=== PATIENT | male | born 1955 | race African-American/Black ===

== ENCOUNTER 2020-08-15 13:51 | Emergency (ER) | payer OTHER, MEDICARE, SELFPAY ==
[~2020-08-15] VITALS: Ht 177.8 cm; Wt 89.4 kg
[2020-08-15 14:00] VITALS: Ht 177.8 cm; Wt 89.4 kg
[2020-08-15 15:00] LABS: BASOPHIL % 0.7 % (0.2-1.5); PLATELET COUNT 247 x10^3mcL (152-348)
[2020-08-15 15:01] LABS: RED CELL DISTRIBUTION WIDTH 14.7 % (12.1-16.2)
[2020-08-15 15:04] LABS: ALBUMIN 3.8 g/dL (3.4-5.0); BILIRUBIN TOTAL 0.5 mg/dL (0.20-1.00); CALCIUM 11.3 mg/dL (8.5-10.1); CARBON DIOXIDE 26.8 mmol/L (21-32); CREATININE SERUM 1.3 mg/dL (0.7-1.3); POTASSIUM SERUM 4.4 mmol/L (3.5-5.1)
[2020-08-15] MEDS ORDERED: ONDANSETRON4 M3 PO ×2 (17:50)
[2020-08-15] MEDS ORDERED: AMBIEN5 MG PO (17:50)
[2020-08-15 18:04] VITALS: BP 187/97
== END 2020-08-15 18:04 | disposition home or self-care (01) ==
LOC: ED 13:51
PROVIDERS: Emergency Medicine
DX: R11.2 Nausea with vomiting, unspecified (principal); E86.0 Dehydration; I10 Essential (primary) hypertension; E11.9 Type 2 diabetes mellitus without complications; E78.00 Pure hypercholesterolemia, unspecified
CPT/HCPCS: J2405; J2765; J7030